=== PATIENT | female | born 1995 | race African-American/Black ===

== ENCOUNTER 2020-09-01 15:28 | Emergency (ER) | payer MEDICAID ==
[~2020-09-01] VITALS: Ht 162.6 cm; Wt 59.1 kg
[2020-09-01] MEDS ORDERED: IBUPROFEN 600MG TABLET PO ONE (17:30)
[2020-09-01 19:25] VITALS: BP 133/81
[2020-09-01] MEDS ORDERED: IBUP-2029 MT (19:27)
== END 2020-09-01 19:30 | disposition home or self-care (01) ==
LOC: ER 15:28
DX: J02.9 Acute pharyngitis, unspecified (principal)
CPT/HCPCS: 87070; 87430; 99283

== ENCOUNTER 2023-09-26 10:21 | Emergency (ER) | payer MEDICAID, OTHER ==
[~2023-09-26] VITALS: Ht 160 cm; Wt 77.0 kg
[~2023-09-26 10:21] MED LIST: IBUP-2029 MT
[2023-09-26 10:31] VITALS: O2SAT 100
[2023-09-26 10:57] LABS: BASOPHILS % 0.6 % (0.0-2.0); DIFFERENTIAL COMMENT 0; EOSINOPHILS % 0.8 % (0.0-5.0); HEMATOCRIT. 37.4 % (36.0-48.0); HEMOGLOBIN. 12.9 g/dL (12.0-16.0); LYMPHOCYTES % 18.7 % (20.0-50.0); MEAN CORPUSCULAR HEMOGLOBIN 34.6 pg (28.0-32.0); MEAN CORPUSCULAR HGB CONC 34.5 g/dL (31.0-37.0); MEAN CORPUSCULAR VOLUME 100.3 fL (81.0-99.0); MEAN PLATELET VOLUME 8.3 fl (7.4-10.4); MONOCYTES % 6.4 % (2.0-8.0); NEUTROPHILS % 73.5 % (40.0-76.0); PLATELET 267 x1000/uL (130-400); RED BLOOD CELL COUNT 3.73 mill/uL (4.2-5.4); RED CELL DISTRIBUTION WIDTH 13.3 % (11.6-14.6); WHITE BLOOD COUNT 8.5 x1000/uL (4.5-11.0)
[2023-09-26 11:02] LABS: CARBON DIOXIDE 25 mEq/L (21-32); CHLORIDE 107 mEq/L (98-107); POTASSIUM 3.8 mEq/L (3.5-5.1); SODIUM 137 mEq/L (136-145)
[2023-09-26 11:03] LABS: CALCIUM 9.9 mg/dL (8.7-10.4)
[2023-09-26 11:07] LABS: CREATININE 0.9 mg/dL (0.6-1.0); GLUCOSE 108 mg/dL (70-105)
[2023-09-26 11:08] LABS: INR 0.9; PROTHROMBIN TIME 10.6 sec (9.6-11.0); UREA NITROGEN BLOOD 10 mg/dL (9-23)
[2023-09-26 12:01] LABS: HCG SCREEN NEGATIVE
[2023-09-26 14:50] VITALS: BP 138/91; PULSE 73; RESP 20; TEMP 98.7
== END 2023-09-26 14:50 | disposition home or self-care (01) ==
LOC: ER 10:21
DX: O46.91 Antepartum hemorrhage, unspecified, first trimester (principal); Z3A.01 Less than 8 weeks gestation of pregnancy
CPT/HCPCS: 36415; 76830; 76856; 80048; 81025; 84703; 85025; 99284

== ENCOUNTER 2024-09-08 09:45 | Emergency (ER) | payer OTHER ==
[~2024-09-08] VITALS: Ht 167.6 cm; Wt 70.0 kg
[2024-09-08 10:03] VITALS: O2SAT 98
[2024-09-08 10:21] LABS: BASOPHILS % 0.4 % (0.0-2.0); HEMATOCRIT. 36.3 % (36.0-48.0); HEMOGLOBIN. 12.3 g/dL (12.0-16.0); LYMPHOCYTES % 22.9 % (20.0-50.0); MEAN CORPUSCULAR HEMOGLOBIN 33.7 pg (28.0-32.0); MEAN CORPUSCULAR VOLUME 99.1 fL (81.0-99.0); MEAN PLATELET VOLUME 8.3 fl (7.4-10.4); MONOCYTES % 9.2 % (2.0-8.0); NEUTROPHILS % 66.5 % (40.0-76.0); PLATELET 240 x1000/uL (130-400); RED BLOOD CELL COUNT 3.67 mill/uL (4.2-5.4); RED CELL DISTRIBUTION WIDTH 13.6 % (11.6-14.6); WHITE BLOOD COUNT 7.9 x1000/uL (4.5-11.0)
[2024-09-08 10:28] LABS: CHLORIDE 107 mEq/L (98-107); POTASSIUM 3.7 mEq/L (3.5-5.1); SODIUM 139 mEq/L (136-145)
[2024-09-08 10:29] LABS: CALCIUM 9.3 mg/dL (8.7-10.4); CARBON DIOXIDE 26 mEq/L (21-32)
[2024-09-08 10:34] LABS: GLUCOSE 86 mg/dL (70-105); UREA NITROGEN BLOOD 12 mg/dL (9-23)
[2024-09-08 10:36] LABS: ALANINE AMINOTRANSFERASE 19 IU/L (10-49); ALBUMIN 4.5 g/dL (3.2-4.8); ASPARTATE AMINOTRANSFERASE 23 IU/L (<34); BILIRUBIN DIRECT 0.2 mg/dL (<=3.0); BILIRUBIN TOTAL 0.6 mg/dL (0.1-1.0)
[2024-09-08 10:37] LABS: PROTEIN TOTAL 7.6 g/dL (6.0-8.3)
[2024-09-08 12:10] LABS: CLARITY URINE CLOUDY (CLEAR); COLOR URINE DARK YELLOW (YELLOW); GLUCOSE URINE NEGATIVE (NEGATIVE); KETONES URINE TRACE (NEGATIVE); LEUKOCYTE ESTERASE URINE 2+ (NEGATIVE); NITRITE URINE NEGATIVE (NEGATIVE); OCCULT BLOOD URINE NEGATIVE (NEGATIVE); PROTEIN URINE 1+ (NEGATIVE)
[2024-09-08 12:30] LABS: SQUAMOUS EPITHELIAL CELL URINE 2+ /lpf (RARE/1+)
[2024-09-08 12:31] LABS: MUCUS URINE 3+ /lpf (< = 2+)
[2024-09-08 12:34] LABS: BACTERIA URINE 3+
[2024-09-08] MEDS ORDERED: SENN-215 MT (13:24)
[2024-09-08] MEDS ORDERED: SULF1TAB48 MT (13:24)
[2024-09-08 13:34] VITALS: BP 124/85; PULSE 70; RESP 18; TEMP 36.7; O2SAT 100
== END 2024-09-08 13:40 | disposition home or self-care (01) ==
LOC: ER 09:45
DX: K64.9 Unspecified hemorrhoids (principal); N39.0 Urinary tract infection, site not specified; Z79.899 Other long term (current) drug therapy; Z98.890 Other specified postprocedural states
CPT/HCPCS: 36415; 80048; 80076; 81003; 81025; 85025; 99283